=== PATIENT | female | born 1995 | race African-American/Black ===

== ENCOUNTER 2022-03-20 23:44 | Emergency (ER) | payer BC ==
[~2022-03-20] VITALS: Ht 160 cm; Wt 63.5 kg
[2022-03-21 00:24] VITALS: BP 122/73
--- NOTE | 2022-03-21 00:31 | NUR ---
PT TAKEN TO BED 9
[2022-03-21] MEDS ORDERED: HYDROcodone/APAP 10/325 MG 1 TAB TAB PO ONE (00:35)
--- NOTE | 2022-03-21 00:44 | NUR ---
PT TO THE BATHROOM FOR URINE COLLECTION
--- NOTE | 2022-03-21 01:15 | NUR ---
PT TAKEN TO CT
[2022-03-21] MEDS ORDERED: IBUP-1878 PO (03:29)
[2022-03-21 04:00] VITALS: BP 122/73
== END 2022-03-21 04:00 | disposition home or self-care (01) ==
LOC: MED 23:44
DX: R41.82 Altered mental status, unspecified (principal); Z79.899 Other long term (current) drug therapy; V89.2XXA Person injured in unspecified motor-vehicle accident, traffic, initial encounter; Y93.89 Activity, other specified; Y92.89 Other specified places as the place of occurrence of the external cause; Y99.8 Other external cause status
CPT/HCPCS: 70450; 72125; 81002; 81025; 99284